=== PATIENT | female | born 1950 | race Caucasian/White ===

== ENCOUNTER → 2021-05-06 14:31 | Outpatient (CLI) | payer MEDICARE, SELFPAY ==
--- NOTE | ~2021-05-06 | MR_ITS ---
EXAMINATION: MR lumbar spine wo [facility] EXAM DATE: 05/06/2021 15:26 INDICATION: Low back pain, right hip/leg pain for 2 months. TECHNIQUE: Multi-sequential, multiplanar MR images of the lumbar spine were obtained without contrast . Sagittal T1, T2, T2 fat saturation images. Axial T2 weighted images. There is no prior study for comparison. FINDINGS: There is nearly fused lumbosacral segment which will be designated L5. There is 5 mm tameka listhesis L3 on L4, 2 mm anterolisthesis L4 on L5. Mild to moderate loss of the L3-4 disc height, mil d at L4-5. The conus medullaris terminates at the T12-L1 level and has normal signal intensity and mo rphology. There are no suspicious marrow signal abnormalities. Level by level evaluation: T12-L1: Disc does not extend beyond the endplate margin. Facet arthropathy: Mild. Neural foraminal stenosis: No stenosis. Central canal stenosis: No stenosis. L1-L2: Disc does not extend beyond the endplate margin. Facet arthropathy: Mild to moderate. Neural foraminal stenosis: No stenosis. Central canal stenosis: No stenosis. L2-L3: There is a mild diffuse disc bulge. Facet arthropathy: Moderate . Ligamentum flavum enlargement. Neural foraminal stenosis: Minimal left. Central canal stenosis: No stenosis. L3-L4: There is a moderate diffuse disc bulge. Facet arthropathy: Severe . Ligamentum flavum enlargement. Neural foraminal stenosis: Mild to moderate bilateral. Central canal stenosis: Moderate to severe. L4-L5: There is a mild to moderate diffuse disc bulge, superimposed central protrusion Facet arthropathy: Moderate to severe . Ligamentum flavum enlargement. Neural foraminal stenosis: Moderate right, mild to moderate left. Central canal stenosis: Moderate, particularly left lateral recess. L5-S1: This level is fused. Facet arthropathy: Mild to moderate, partially fused. Neural foraminal stenosis: Mild bilateral. Central canal stenosis: No stenosis. IMPRESSION: 1. Lumbar spondylosis, with L3-4 grade 1 anterolisthesis and moderate to severe central canal stenos is. 2. Transitional L5 segment. Reviewed, dictated and finalized at location B. IMPRESSION: 1. Lumbar spondylosis, with L3-4 grade 1 anterolisthesis and moderate to sever e central canal stenosis. 2. Transitional L5 segment.
== END ==
PROVIDERS: PCP Family Medicine; Visit Provider Family Medicine
DX: M54.5 Low back pain (principal); M47.816 Spondylosis without myelopathy or radiculopathy, lumbar region; Q76.49 Other congenital malformations of spine, not associated with scoliosis
CPT/HCPCS: 72148

== ENCOUNTER → 2021-07-21 12:02 | Outpatient (CLI) | payer MEDICARE, SELFPAY ==
--- NOTE | ~2021-07-21 | XR_ITS ---
EXAMINATION: XR hip RT min 2V DATE: 07/21/2021 12:33 INDICATION: Right hip pain. TECHNIQUE: 2 views of right hip were obtained. COMPARISON: None. FINDINGS: Bone alignment is normal. No fracture. Joint spaces are normal. There are surgical clips in the abdomen and pelvis. IMPRESSION: 1. Normal right hip. Reviewed, dictated and finalized at location A. IMPRESSION: 1. Normal right hip.
== END ==
PROVIDERS: PCP Family Medicine
DX: M25.551 Pain in right hip (principal)
CPT/HCPCS: 73502

== ENCOUNTER → 2021-10-07 08:25 | Outpatient (REF) | payer MEDICARE, SELFPAY | LOC: ANHLAB 08:25 | PROVIDERS: PCP Family Medicine; Visit Provider Nurse Practitioner | DX: D49.2 Neoplasm of unspecified behavior of bone, soft tissue, and skin (principal) | CPT/HCPCS: 88305 ==